=== PATIENT | female | born 1950 | race African-American/Black ===

== ENCOUNTER 2018-10-20 11:34 | Inpatient (IN) | payer MEDICARE ==
[~2018-10-20] VITALS: Ht 167.6 cm; Wt 61.8 kg
[2018-10-20] MEDS ORDERED: INSLAN SQ (12:02)
[2018-10-20 12:04] LABS: GLUCOSE,POINT OF CARE 313 MG/DL (70-110)
[2018-10-20] MEDS ORDERED: PERTUSS(ACELL),DIPH,TET VAC/PF 0.5 ML VIAL IM ONE (13:15)
[2018-10-20] MEDS ORDERED: PIPERACILLIN/TAZO 3.375 GM/D5W 50 ML IV ONE (13:15)
[2018-10-20] MEDS ORDERED: VANCOMYCIN HCL 1 GM/D5% WATER 200 ML IV ONE ×2 (14:15→22:00)
[2018-10-20 14:20] LABS: BASOPHILS % (AUTO) 0.4 % (0.0-2.0); EOSINOPHILS % (AUTO) 0 % (1.0-6.0); HEMATOCRIT 33.9 % (36-46); HEMOGLOBIN 10.8 g/dL (12.0-16.0); LYMPHOCYTES # (AUTO) 1.5 K/uL (1.0-4.8); LYMPHOCYTES % (AUTO) 9.9 % (22.0-44.0); MEAN CORPUSCULAR HEMOGLOBIN 24.8 pg (26.0-34.0); MEAN CORPUSCULAR HGB CONC 31.8 G/dL (31.0-37.0); MEAN CORPUSCULAR VOLUME 78 fL (80-100); MONOCYTES # (AUTO) 1.3 K/uL (0.1-1.0); MONOCYTES % (AUTO) 8.7 % (2.0-9.0); NEUTROPHILS # (AUTO) 12.2 K/uL (1.8-7.7); PLATELET COUNT (AUTO) 386 K/uL (150-450); RED BLOOD CELL COUNT(AUTO) 4.34 MIL/uL (4.00-5.20); RED CELL DISTRIBUTION WIDTH 13.5 % (11.5-14.5)
[2018-10-20 15:14] LABS: ANION GAP 12 mmol/L (8-16); CALCIUM, TOTAL 9.2 mg/dL (8.8-10.5); CARBON DIOXIDE 30 mmol/L (22-29); CHLORIDE 97 mmol/L (98-107); CREATININE 0.76 mg/dL (0.60-1.30); GLOMERULAR FILTR. RATE CALC > 60 mL/min (>60); GLUCOSE,RANDOM 265 mg/dL (70-110); POTASSIUM 3.3 mmol/L (3.5-5.1); SODIUM SERUM 139 mmol/L (136-145); UREA NITROGEN, BLOOD 9 mg/dL (7-18)
[2018-10-20] MEDS ORDERED: ONDANSETRON HCL 4 MG/2 ML VIAL IVP PRN ×2 (15:15→20:00)
[2018-10-20] MEDS ORDERED: ACETAMINOPHEN 325 MG TABLET PO PRN ×2 (15:15→20:00)
[2018-10-20] MEDS ORDERED: SODIUM CHLORIDE 0.9% 1,000 ML IV ONE (15:15)
[2018-10-20 15:20] LABS: ALANINE AMINOTRANSFERASE 27 U/L (12-78); ALBUMIN 2.4 g/dL (3.4-5.0); ALKALINE PHOSPHATASE 95 U/L (46-116); ASPARTATE AMINOTRANSFERASE 66 U/L (15-37); BILIRUBIN,TOTAL 0.8 mg/dL (0.1-1.0); TOTAL PROTEIN, SERUM 8.5 g/dL (6.4-8.2)
[2018-10-20 15:23] LABS: ERYTHROCYTE SEDIMENTATION RATE 118 MM/HR (0-20)
[2018-10-20] MEDS ORDERED: DEXTROSE 50%-WATER 25 GM/50 ML SYRINGE IVP PRN (15:30)
[2018-10-20] MEDS ORDERED: INSULIN LISPRO 100 UNITS/ML SQ PRN ×2 (15:30→20:00)
[2018-10-20 17:09] LABS: GLUCOSE,POINT OF CARE 290 MG/DL (70-110)
[2018-10-20 19:21] VITALS: BP 109/75
[2018-10-20] MEDS ORDERED: 0.9% SODIUM CHLORIDE 10 ML SYRINGE IVP PRN (20:00)
[2018-10-20] MEDS ORDERED: GLUCAGON,HUMAN RECOMBINANT 1 MG VIAL IM PRN (20:00)
[2018-10-20] MEDS: HEPARIN SODIUM,PORCINE 5,000 UNITS/ML VIAL SQ SCH ×3 (20:00→22:58)
[2018-10-20] MEDS ORDERED: ZOLPIDEM TARTRATE 5 MG TABLET PO PRN (20:00)
[2018-10-20] MEDS: INSULIN GLARGINE,HUM.REC.ANLOG 100 UNITS/ML SQ SCH (20:02)
[2018-10-20] MEDS: PANTOPRAZOLE SODIUM 40 MG/VIAL IVP SCH (20:06)
[2018-10-20] MEDS: DOCUSATE SODIUM 100 MG CAPSULE PO SCH (20:07)
[2018-10-20] MEDS ORDERED: DEXTROSE 50%-WATER 25 GM/50 ML SYG IVP PRN (20:15)
[2018-10-20] MEDS ORDERED: POTASSIUM CHL 10 MEQ/WATER 50 ML IV PRN (21:00)
[2018-10-20] MEDS: PIPERACILLIN/TAZO 3.375 GM/D5W 50 ML IV SCH (21:08)
[2018-10-20 21:14] LABS: GLUCOMETER DEV NAME(LOC) 5S.2; GLUCOSE,POINT OF CARE 182 MG/DL (70-110)
[2018-10-20] MEDS: POTASSIUM CHLORIDE 20 MEQ ER TABLET PO PRN (23:39)
[2018-10-20 23:47] VITALS: BP 114/68
[2018-10-21] MEDS: PIPERACILLIN/TAZO 3.375 GM/D5W 50 ML IV SCH ×4 (03:02→20:04)
[2018-10-21 04:45] VITALS: BP 115/71
[2018-10-21 05:59] LABS: BASOPHILS % (AUTO) 0.3 % (0.0-2.0); EOSINOPHILS % (AUTO) 0 % (1.0-6.0); HEMATOCRIT 32.8 % (36-46); HEMOGLOBIN 10.8 g/dL (12.0-16.0); LYMPHOCYTES # (AUTO) 1.5 K/uL (1.0-4.8); LYMPHOCYTES % (AUTO) 10.4 % (22.0-44.0); MEAN CORPUSCULAR HEMOGLOBIN 25.3 pg (26.0-34.0); MEAN CORPUSCULAR HGB CONC 32.8 G/dL (31.0-37.0); MEAN CORPUSCULAR VOLUME 77 fL (80-100); MONOCYTES # (AUTO) 1.1 K/uL (0.1-1.0); MONOCYTES % (AUTO) 7.6 % (2.0-9.0); NEUTROPHILS # (AUTO) 11.4 K/uL (1.8-7.7); NEUTROPHILS % (AUTO) 81.7 % (40.0-70.0); PLATELET COUNT (AUTO) 345 K/uL (150-450); RED BLOOD CELL COUNT(AUTO) 4.25 MIL/uL (4.00-5.20)
[2018-10-21 06:14] LABS: GLUCOMETER DEV NAME(LOC) 5S.2; GLUCOSE,POINT OF CARE 147 MG/DL (70-110)
[2018-10-21 06:16] LABS: CALCIUM, TOTAL 8.8 mg/dL (8.8-10.5); CREATININE 1.28 mg/dL (0.60-1.30); POTASSIUM 3.5 mmol/L (3.5-5.1)
[2018-10-21] MEDS: VANCOMYCIN HCL 1 GM/D5% WATER 200 ML IV SCH ×2 (06:35→17:49)
[2018-10-21] MEDS: HEPARIN SODIUM,PORCINE 5,000 UNITS/ML VIAL SQ SCH ×2 (07:13→15:14)
[2018-10-21] MEDS: DOCUSATE SODIUM 100 MG CAPSULE PO SCH ×2 (07:13→20:13)
[2018-10-21 07:39] VITALS: BP 118/79
[2018-10-21 08:08] LABS: AMPHET/METH SCREEN,URINE NEGATIVE (NEGATIVE); BARBITURATE SCREEN, URINE NEGATIVE (NEGATIVE); BENZODIAZEPINES SCREEN,URINE NEGATIVE (NEGATIVE); CANNABINOID SCREEN,URINE NEGATIVE (NEGATIVE); COCAINE SCREEN,URINE NEGATIVE (NEGATIVE); METHADONE SCREEN, URINE NEGATIVE (NEGATIVE); OPIATE SCREEN,URINE NEGATIVE (NEGATIVE)
[2018-10-21 08:09] LABS: PHENCYCLIDINE SCREEN,URINE NEGATIVE (NEGATIVE)
[2018-10-21] MEDS: PANTOPRAZOLE SODIUM 40 MG/VIAL IVP SCH (08:18)
[2018-10-21] MEDS ORDERED: RINGERS SOLUTION,LACTATED 1,000 ML IV ONE ×2 (08:20→08:45)
[2018-10-21] MEDS ORDERED: LIDOCAINE/PF 1% 30 ML VIAL ONE (08:35)
[2018-10-21] MEDS ORDERED: BUPIVACAINE HCL/PF 0.5% 30 ML VIAL ONE (08:35)
[2018-10-21] MEDS ORDERED: BACITRACIN 50,000 UNITS/VIAL ONE ×2 (08:36→09:12)
[2018-10-21] MEDS ORDERED: SODIUM CL IRRIG SOLN BAG 3,000 ML IRRIG ONE ×2 (08:36→09:12)
[2018-10-21] MEDS ORDERED: MEPERIDINE-PF 25 MG/ML VIAL IVP PRN (08:45)
[2018-10-21] MEDS ORDERED: FentaNYL CITRATE-PF 100 MCG/2 ML VIAL IVP PRN (08:45)
[2018-10-21] MEDS ORDERED: HYDROmorphone 2 MG/ML SYRINGE IVP PRN (08:45)
[2018-10-21 10:37] VITALS: BP 111/68
[2018-10-21 11:04] LABS: GLUCOMETER DEV NAME(LOC) 5N.2; GLUCOSE,POINT OF CARE 179 MG/DL (70-110)
[2018-10-21] MEDS: INSULIN LISPRO 100 UNITS/ML SQ PRN ×3 (11:53→20:13)
[2018-10-21] MEDS ORDERED: LIDOCAINE/PF 2% 5 ML VIAL INJ ONE (12:00)
[2018-10-21] MEDS ORDERED: PHENYLEPHRINE HCL 10 MG/ML VIAL IVP ONE (12:00)
[2018-10-21] MEDS ORDERED: FentaNYL CITRATE-PF 100 MCG/2 ML VIAL IVP ONE (12:00)
[2018-10-21] MEDS ORDERED: MIDAZOLAM HCL 2 MG/2 ML VIAL IVP ONE (12:00)
[2018-10-21] MEDS ORDERED: ONDANSETRON HCL 4 MG/2 ML VIAL IVP ONE (12:00)
[2018-10-21 15:22] VITALS: BP 99/69
[2018-10-21] MEDS: MORPHINE SULFATE 2 MG/ML SYRINGE IVP PRN ×2 (17:19→23:53)
[2018-10-21 18:04] LABS: GLUCOMETER DEV NAME(LOC) 5N.2; GLUCOSE,POINT OF CARE 174 MG/DL (70-110)
[2018-10-21] MEDS: INSULIN GLARGINE,HUM.REC.ANLOG 100 UNITS/ML SQ SCH (20:13)
[2018-10-21 20:16] VITALS: BP 115/63
[2018-10-21 20:54] LABS: GLUCOMETER DEV NAME(LOC) 5S.2; GLUCOSE,POINT OF CARE 343 MG/DL (70-110)
[2018-10-21 23:44] VITALS: BP 106/66
[2018-10-22] MEDS: PIPERACILLIN/TAZO 3.375 GM/D5W 50 ML IV SCH ×4 (03:07→20:38)
[2018-10-22 05:50] VITALS: BP 115/70
[2018-10-22] MEDS: VANCOMYCIN HCL 1 GM/D5% WATER 200 ML IV SCH ×2 (05:51→17:33)
[2018-10-22] MEDS: INSULIN LISPRO 100 UNITS/ML SQ PRN ×4 (05:53→20:50)
[2018-10-22 06:07] LABS: BASOPHILS % (AUTO) 0.3 % (0.0-2.0); EOSINOPHILS % (AUTO) 0.1 % (1.0-6.0); HEMATOCRIT 28.7 % (36-46); HEMOGLOBIN 9.4 g/dL (12.0-16.0); LYMPHOCYTES # (AUTO) 1.4 K/uL (1.0-4.8); LYMPHOCYTES % (AUTO) 11.6 % (22.0-44.0); MEAN CORPUSCULAR HGB CONC 32.9 G/dL (31.0-37.0); MEAN CORPUSCULAR VOLUME 76 fL (80-100); MONOCYTES % (AUTO) 8.9 % (2.0-9.0); NEUTROPHILS # (AUTO) 9.3 K/uL (1.8-7.7); NEUTROPHILS % (AUTO) 79.1 % (40.0-70.0); PLATELET COUNT (AUTO) 328 K/uL (150-450); RED BLOOD CELL COUNT(AUTO) 3.77 MIL/uL (4.00-5.20); RED CELL DISTRIBUTION WIDTH 13.8 % (11.5-14.5)
[2018-10-22 06:30] LABS: CALCIUM, TOTAL 8.2 mg/dL (8.8-10.5); CREATININE 1.17 mg/dL (0.60-1.30); MAGNESIUM 2.1 mg/dL (1.80-2.40); POTASSIUM 3.6 mmol/L (3.5-5.1); VANCOMYCIN,RANDOM 14.5 mcg/mL (25.0-50.0)
[2018-10-22 06:30] LABS: GLUCOMETER DEV NAME(LOC) 5S.2; GLUCOSE,POINT OF CARE 220 MG/DL (70-110)
[2018-10-22 07:52] VITALS: BP 110/50
[2018-10-22] MEDS: OXYGEN THERAPY IH SCH (08:00)
[2018-10-22] MEDS: HEPARIN SODIUM,PORCINE 5,000 UNITS/ML VIAL SQ SCH ×3 (08:51→16:00)
[2018-10-22] MEDS: DOCUSATE SODIUM 100 MG CAPSULE PO SCH ×2 (08:51→20:38)
[2018-10-22] MEDS: PANTOPRAZOLE SODIUM 40 MG/VIAL IVP SCH (08:52)
[2018-10-22 11:23] VITALS: BP 116/76
[2018-10-22 12:04] LABS: GLUCOMETER DEV NAME(LOC) 5N.2; GLUCOSE,POINT OF CARE 252 MG/DL (70-110)
[2018-10-22] MEDS: MORPHINE SULFATE 2 MG/ML SYRINGE IVP PRN ×2 (14:42→20:38)
[2018-10-22 15:36] VITALS: BP 107/71
[2018-10-22 18:54] LABS: GLUCOMETER DEV NAME(LOC) 5S.2; GLUCOSE,POINT OF CARE 183 MG/DL (70-110)
[2018-10-22 20:02] VITALS: BP 112/70
[2018-10-22] MEDS: INSULIN GLARGINE,HUM.REC.ANLOG 100 UNITS/ML SQ SCH (20:51)
[2018-10-22 23:55] VITALS: BP 109/72
[2018-10-23 00:05] LABS: GLUCOMETER DEV NAME(LOC) 5S.2; GLUCOSE,POINT OF CARE 291 MG/DL (70-110)
[2018-10-23] MEDS: PIPERACILLIN/TAZO 3.375 GM/D5W 50 ML IV SCH ×4 (03:14→20:42)
[2018-10-23 03:18] VITALS: BP 113/76
[2018-10-23] MEDS: VANCOMYCIN HCL 1 GM/D5% WATER 200 ML IV SCH (05:58)
[2018-10-23 06:14] LABS: GLUCOMETER DEV NAME(LOC) 5S.2; GLUCOSE,POINT OF CARE 120 MG/DL (70-110)
[2018-10-23 06:34] LABS: CALCIUM, TOTAL 8.2 mg/dL (8.8-10.5); CREATININE 1.2 mg/dL (0.60-1.30); POTASSIUM 3.1 mmol/L (3.5-5.1)
[2018-10-23 08:09] VITALS: BP 119/74
[2018-10-23] MEDS: HEPARIN SODIUM,PORCINE 5,000 UNITS/ML VIAL SQ SCH ×4 (08:52→23:19)
[2018-10-23] MEDS: DOCUSATE SODIUM 100 MG CAPSULE PO SCH ×2 (08:53→20:43)
[2018-10-23] MEDS: PANTOPRAZOLE SODIUM 40 MG/VIAL IVP SCH (08:53)
[2018-10-23 11:47] VITALS: BP 122/73
[2018-10-23] MEDS: INSULIN LISPRO 100 UNITS/ML SQ PRN ×3 (12:03→20:42)
[2018-10-23 16:10] VITALS: BP 120/56
[2018-10-23 20:05] VITALS: BP 115/70
[2018-10-23 20:30] LABS: GLUCOMETER DEV NAME(LOC) 5S.2; GLUCOSE,POINT OF CARE 187 MG/DL (70-110)
[2018-10-23 20:30] LABS: GLUCOMETER DEV NAME(LOC) 5S.2; GLUCOSE,POINT OF CARE 219 MG/DL (70-110)
[2018-10-23] MEDS: POTASSIUM CHLORIDE 20 MEQ ER TABLET PO PRN (20:42)
[2018-10-23] MEDS: INSULIN GLARGINE,HUM.REC.ANLOG 100 UNITS/ML SQ SCH (20:43)
[2018-10-23 22:44] LABS: GLUCOMETER DEV NAME(LOC) 5S.2; GLUCOSE,POINT OF CARE 291 MG/DL (70-110)
[2018-10-24] VITALS (7 sets, daily range): BP systolic 100–122; BP diastolic 58–77
[2018-10-24] MEDS: PIPERACILLIN/TAZO 3.375 GM/D5W 50 ML IV SCH ×4 (03:39→20:49)
[2018-10-24 05:58] LABS: BASOPHILS % (AUTO) 0.4 % (0.0-2.0); EOSINOPHILS % (AUTO) 0.5 % (1.0-6.0); HEMATOCRIT 29.1 % (36-46); HEMOGLOBIN 9.4 g/dL (12.0-16.0); LYMPHOCYTES # (AUTO) 1.6 K/uL (1.0-4.8); LYMPHOCYTES % (AUTO) 14.1 % (22.0-44.0); MEAN CORPUSCULAR HEMOGLOBIN 24.5 pg (26.0-34.0); MEAN CORPUSCULAR HGB CONC 32.3 G/dL (31.0-37.0); MEAN CORPUSCULAR VOLUME 76 fL (80-100); MONOCYTES % (AUTO) 8.8 % (2.0-9.0); NEUTROPHILS # (AUTO) 8.6 K/uL (1.8-7.7); NEUTROPHILS % (AUTO) 76.2 % (40.0-70.0); PLATELET COUNT (AUTO) 356 K/uL (150-450); RED BLOOD CELL COUNT(AUTO) 3.85 MIL/uL (4.00-5.20); RED CELL DISTRIBUTION WIDTH 13.6 % (11.5-14.5)
[2018-10-24 06:28] LABS: CALCIUM, TOTAL 8.6 mg/dL (8.8-10.5); CREATININE 1.12 mg/dL (0.60-1.30); MAGNESIUM 2.1 mg/dL (1.80-2.40); POTASSIUM 3.6 mmol/L (3.5-5.1)
[2018-10-24 06:29] LABS: GLUCOMETER DEV NAME(LOC) 5S.2; GLUCOSE,POINT OF CARE 135 MG/DL (70-110)
[2018-10-24] MEDS: HEPARIN SODIUM,PORCINE 5,000 UNITS/ML VIAL SQ SCH ×2 (07:54→15:27)
[2018-10-24] MEDS: PANTOPRAZOLE SODIUM 40 MG/VIAL IVP SCH (07:54)
[2018-10-24] MEDS: DOCUSATE SODIUM 100 MG CAPSULE PO SCH ×2 (07:54→21:00)
[2018-10-24 11:39] LABS: GLUCOMETER DEV NAME(LOC) 5S.2; GLUCOSE,POINT OF CARE 292 MG/DL (70-110)
[2018-10-24] MEDS: INSULIN LISPRO 100 UNITS/ML SQ PRN ×3 (11:39→20:50)
[2018-10-24 17:19] LABS: GLUCOMETER DEV NAME(LOC) 5S.2; GLUCOSE,POINT OF CARE 273 MG/DL (70-110)
[2018-10-24] MEDS: INSULIN GLARGINE,HUM.REC.ANLOG 100 UNITS/ML SQ SCH (20:49)
[2018-10-25] MEDS: HEPARIN SODIUM,PORCINE 5,000 UNITS/ML VIAL SQ SCH ×4 (00:01→23:50)
[2018-10-25] MEDS: PIPERACILLIN/TAZO 3.375 GM/D5W 50 ML IV SCH ×4 (04:08→20:35)
[2018-10-25 04:33] VITALS: BP 105/64
[2018-10-25] MEDS: INSULIN LISPRO 100 UNITS/ML SQ PRN ×4 (06:31→20:44)
[2018-10-25 06:41] LABS: CALCIUM, TOTAL 8.3 mg/dL (8.8-10.5); CREATININE 1.12 mg/dL (0.60-1.30); POTASSIUM 3.3 mmol/L (3.5-5.1)
[2018-10-25 06:58] LABS: GLUCOMETER DEV NAME(LOC) 5N.2; GLUCOSE,POINT OF CARE 145 MG/DL (70-110)
[2018-10-25 06:58] LABS: GLUCOMETER DEV NAME(LOC) 5N.2; GLUCOSE,POINT OF CARE 313 MG/DL (70-110)
[2018-10-25 07:57] VITALS: BP 121/79
[2018-10-25] MEDS: DOCUSATE SODIUM 100 MG CAPSULE PO SCH ×2 (08:26→20:35)
[2018-10-25] MEDS: PANTOPRAZOLE SODIUM 40 MG/VIAL IVP SCH (08:26)
[2018-10-25 12:12] VITALS: BP 127/81
[2018-10-25 15:50] VITALS: BP 129/78
[2018-10-25] MEDS: POTASSIUM CHLORIDE 20 MEQ ER TABLET PO PRN (17:12)
[2018-10-25 19:06] LABS: GLUCOMETER DEV NAME(LOC) 5S.2; GLUCOSE,POINT OF CARE 271 MG/DL (70-110)
[2018-10-25 19:06] LABS: GLUCOMETER DEV NAME(LOC) 5S.2; GLUCOSE,POINT OF CARE 190 MG/DL (70-110)
[2018-10-25] MEDS: INSULIN GLARGINE,HUM.REC.ANLOG 100 UNITS/ML SQ SCH (20:41)
[2018-10-25 22:58] VITALS: BP 127/76
[2018-10-26] VITALS (7 sets, daily range): BP systolic 111–143; BP diastolic 57–83
[2018-10-26 01:05] LABS: GLUCOMETER DEV NAME(LOC) 5N.2; GLUCOSE,POINT OF CARE 215 MG/DL (70-110)
[2018-10-26] MEDS: PIPERACILLIN/TAZO 3.375 GM/D5W 50 ML IV SCH ×4 (03:30→22:04)
[2018-10-26] MEDS ORDERED: RINGERS SOLUTION,LACTATED 1,000 ML IV SCH (06:00)
[2018-10-26 06:04] LABS: BASOPHILS % (AUTO) 0.5 % (0.0-2.0); EOSINOPHILS % (AUTO) 1.2 % (1.0-6.0); HEMATOCRIT 27.1 % (36-46); HEMOGLOBIN 8.7 g/dL (12.0-16.0); LYMPHOCYTES # (AUTO) 1.4 K/uL (1.0-4.8); LYMPHOCYTES % (AUTO) 14.3 % (22.0-44.0); MEAN CORPUSCULAR HEMOGLOBIN 24.7 pg (26.0-34.0); MEAN CORPUSCULAR HGB CONC 32.3 G/dL (31.0-37.0); MEAN CORPUSCULAR VOLUME 77 fL (80-100); MONOCYTES # (AUTO) 1.1 K/uL (0.1-1.0); MONOCYTES % (AUTO) 11.7 % (2.0-9.0); NEUTROPHILS # (AUTO) 6.9 K/uL (1.8-7.7); NEUTROPHILS % (AUTO) 72.3 % (40.0-70.0); PLATELET COUNT (AUTO) 390 K/uL (150-450); RED BLOOD CELL COUNT(AUTO) 3.54 MIL/uL (4.00-5.20); RED CELL DISTRIBUTION WIDTH 13.9 % (11.5-14.5)
[2018-10-26 06:33] LABS: ALANINE AMINOTRANSFERASE 22 U/L (12-78); ALBUMIN 1.7 g/dL (3.4-5.0); ALKALINE PHOSPHATASE 93 U/L (46-116); ANION GAP 8 mmol/L (8-16); ASPARTATE AMINOTRANSFERASE 33 U/L (15-37); BILIRUBIN,TOTAL 0.4 mg/dL (0.1-1.0); CALCIUM, TOTAL 8.4 mg/dL (8.8-10.5); CARBON DIOXIDE 30 mmol/L (22-29); CHLORIDE 101 mmol/L (98-107); CREATININE 1.08 mg/dL (0.60-1.30); GLOMERULAR FILTR. RATE CALC > 60 mL/min (>60); GLUCOSE,RANDOM 86 mg/dL (70-110); POTASSIUM 3.6 mmol/L (3.5-5.1); SODIUM SERUM 139 mmol/L (136-145); TOTAL PROTEIN, SERUM 7.1 g/dL (6.4-8.2); UREA NITROGEN, BLOOD 9 mg/dL (7-18)
[2018-10-26] MEDS ORDERED: ACETAMINOPHEN 1000 MG/ISO-OSM 100 ML IV ONE (06:53)
[2018-10-26] MEDS ORDERED: SODIUM CL IRRIG SOLN BAG 6,000 ML IRRIG ONE (06:56)
[2018-10-26] MEDS ORDERED: LIDOCAINE/PF 2% 5 ML VIAL ONE (06:59)
[2018-10-26] MEDS ORDERED: BUPIVACAINE HCL/PF 0.5% 30 ML VIAL ONE (06:59)
[2018-10-26] MEDS: HEPARIN SODIUM,PORCINE 5,000 UNITS/ML VIAL SQ SCH ×2 (08:00→17:05)
[2018-10-26] MEDS ORDERED: HYDROmorphone 2 MG/ML SYRINGE IVP PRN (08:00)
[2018-10-26] MEDS ORDERED: MEPERIDINE-PF 25 MG/ML VIAL IVP PRN (08:00)
[2018-10-26] MEDS: OXYGEN THERAPY IH SCH ×2 (08:00→20:00)
[2018-10-26] MEDS ORDERED: FentaNYL CITRATE-PF 100 MCG/2 ML VIAL IVP PRN (08:00)
[2018-10-26] MEDS: PANTOPRAZOLE SODIUM 40 MG/VIAL IVP SCH (09:00)
[2018-10-26] MEDS: DOCUSATE SODIUM 100 MG CAPSULE PO SCH ×2 (09:00→20:42)
[2018-10-26] MEDS: MULTIVITAMINS WITH MINERALS, THERAPEUTIC TABLET PO SCH (09:00)
[2018-10-26 12:09] LABS: GLUCOMETER DEV NAME(LOC) 5N.2; GLUCOSE,POINT OF CARE 83 MG/DL (70-110)
[2018-10-26] MEDS: INSULIN LISPRO 100 UNITS/ML SQ PRN ×2 (12:17→17:20)
[2018-10-26 12:49] LABS: GLUCOMETER DEV NAME(LOC) 6N.2; GLUCOSE,POINT OF CARE 170 MG/DL (70-110)
[2018-10-26] MEDS: INSULIN GLARGINE,HUM.REC.ANLOG 100 UNITS/ML SQ SCH (20:42)
[2018-10-26 23:04] LABS: GLUCOMETER DEV NAME(LOC) 4E.; GLUCOSE,POINT OF CARE 144 MG/DL (70-110)
[2018-10-27 00:24] LABS: GLUCOMETER DEV NAME(LOC) 6N.2; GLUCOSE,POINT OF CARE 133 MG/DL (70-110)
[2018-10-27] MEDS: HEPARIN SODIUM,PORCINE 5,000 UNITS/ML VIAL SQ SCH ×3 (00:44→16:14)
[2018-10-27] MEDS: PIPERACILLIN/TAZO 3.375 GM/D5W 50 ML IV SCH ×4 (03:20→21:29)
[2018-10-27] MEDS ORDERED: PROPOFOL 1% 20 ML VIAL IVP ONE (05:05)
[2018-10-27] MEDS ORDERED: LIDOCAINE/PF 2% 5 ML VIAL IM ONE (05:05)
[2018-10-27] MEDS ORDERED: MIDAZOLAM HCL 2 MG/2 ML VIAL IVP ONE (05:05)
[2018-10-27] MEDS ORDERED: KETAMINE HCL 50 MG/ML 10 ML VIAL IVP ONE (05:05)
[2018-10-27 05:54] VITALS: BP 125/80
[2018-10-27] MEDS: OXYGEN THERAPY IH SCH ×2 (08:00→20:00)
[2018-10-27] MEDS: DOCUSATE SODIUM 100 MG CAPSULE PO SCH ×3 (08:29→20:45)
[2018-10-27] MEDS: MULTIVITAMINS WITH MINERALS, THERAPEUTIC TABLET PO SCH (08:29)
[2018-10-27] MEDS: PANTOPRAZOLE SODIUM 40 MG/VIAL IVP SCH (08:29)
[2018-10-27 08:31] VITALS: BP 130/77
[2018-10-27] MEDS: INSULIN LISPRO 100 UNITS/ML SQ PRN ×3 (11:56→20:43)
[2018-10-27 12:56] VITALS: BP 127/80
[2018-10-27 16:10] VITALS: BP 141/85
[2018-10-27 20:19] VITALS: BP 114/65
[2018-10-27] MEDS: INSULIN GLARGINE,HUM.REC.ANLOG 100 UNITS/ML SQ SCH (20:43)
[2018-10-27] MEDS: LEVOFLOXACIN 250 MG TABLET PO SCH (23:18)
[2018-10-27 23:28] VITALS: BP 114/77
[2018-10-28] MEDS: HEPARIN SODIUM,PORCINE 5,000 UNITS/ML VIAL SQ SCH ×4 (00:19→23:57)
[2018-10-28 04:30] VITALS: BP 113/67
[2018-10-28 07:10] LABS: BASOPHILS % (AUTO) 0.4 % (0.0-2.0); EOSINOPHILS % (AUTO) 1.2 % (1.0-6.0); HEMATOCRIT 26.9 % (36-46); HEMOGLOBIN 8.8 g/dL (12.0-16.0); LYMPHOCYTES # (AUTO) 1.4 K/uL (1.0-4.8); LYMPHOCYTES % (AUTO) 13.9 % (22.0-44.0); MEAN CORPUSCULAR HEMOGLOBIN 24.7 pg (26.0-34.0); MEAN CORPUSCULAR HGB CONC 32.8 G/dL (31.0-37.0); MEAN CORPUSCULAR VOLUME 75 fL (80-100); MONOCYTES # (AUTO) 1.2 K/uL (0.1-1.0); MONOCYTES % (AUTO) 11.6 % (2.0-9.0); NEUTROPHILS # (AUTO) 7.3 K/uL (1.8-7.7); NEUTROPHILS % (AUTO) 72.9 % (40.0-70.0); PLATELET COUNT (AUTO) 415 K/uL (150-450); RED BLOOD CELL COUNT(AUTO) 3.56 MIL/uL (4.00-5.20)
[2018-10-28 07:44] LABS: ALBUMIN 1.8 g/dL (3.4-5.0); BILIRUBIN,TOTAL 0.4 mg/dL (0.1-1.0); CALCIUM, TOTAL 8.7 mg/dL (8.8-10.5); CREATININE 1.24 mg/dL (0.60-1.30); POTASSIUM 3.8 mmol/L (3.5-5.1); TOTAL PROTEIN, SERUM 7.8 g/dL (6.4-8.2)
[2018-10-28] MEDS: OXYGEN THERAPY IH SCH ×2 (07:46→21:16)
[2018-10-28 08:01] VITALS: BP 128/77
[2018-10-28] MEDS: MULTIVITAMINS WITH MINERALS, THERAPEUTIC TABLET PO SCH (08:16)
[2018-10-28] MEDS: DOCUSATE SODIUM 100 MG CAPSULE PO SCH ×2 (08:16→21:16)
[2018-10-28] MEDS: PANTOPRAZOLE SODIUM 40 MG/VIAL IVP SCH (08:16)
[2018-10-28] MEDS: INSULIN LISPRO 100 UNITS/ML SQ PRN ×3 (11:36→21:21)
[2018-10-28 12:15] VITALS: BP 128/71
[2018-10-28 15:52] VITALS: BP 146/90
[2018-10-28 19:06] VITALS: BP 111/70
[2018-10-28] MEDS: LEVOFLOXACIN 250 MG TABLET PO SCH (21:16)
[2018-10-28] MEDS: INSULIN GLARGINE,HUM.REC.ANLOG 100 UNITS/ML SQ SCH (21:19)
[2018-10-28 23:25] VITALS: BP 111/63
[2018-10-29 04:30] VITALS: BP 125/76
[2018-10-29] MEDS: OXYGEN THERAPY IH SCH ×2 (08:00→21:01)
[2018-10-29 08:06] VITALS: BP 135/85
[2018-10-29] MEDS: HEPARIN SODIUM,PORCINE 5,000 UNITS/ML VIAL SQ SCH ×3 (08:49→23:35)
[2018-10-29] MEDS: MULTIVITAMINS WITH MINERALS, THERAPEUTIC TABLET PO SCH (08:49)
[2018-10-29] MEDS: PANTOPRAZOLE SODIUM 40 MG/VIAL IVP SCH (08:50)
[2018-10-29] MEDS: DOCUSATE SODIUM 100 MG CAPSULE PO SCH ×2 (08:50→20:50)
[2018-10-29 11:24] VITALS: BP 114/71
[2018-10-29] MEDS: INSULIN LISPRO 100 UNITS/ML SQ PRN ×3 (11:54→20:56)
[2018-10-29] MEDS: MORPHINE SULFATE 2 MG/ML SYRINGE IVP PRN (14:10)
[2018-10-29 15:40] VITALS: BP 135/82
[2018-10-29 19:49] LABS: GLUCOMETER DEV NAME(LOC) 6N.2; GLUCOSE,POINT OF CARE 250 MG/DL (70-110)
[2018-10-29 19:49] LABS: GLUCOMETER DEV NAME(LOC) 6N.2; GLUCOSE,POINT OF CARE 179 MG/DL (70-110)
[2018-10-29 19:49] LABS: GLUCOMETER DEV NAME(LOC) 6N.2; GLUCOSE,POINT OF CARE 243 MG/DL (70-110)
[2018-10-29 19:49] LABS: GLUCOMETER DEV NAME(LOC) 6N.2; GLUCOSE,POINT OF CARE 91 MG/DL (70-110)
[2018-10-29 19:49] LABS: GLUCOMETER DEV NAME(LOC) 6N.2; GLUCOSE,POINT OF CARE 72 MG/DL (70-110)
[2018-10-29 19:49] LABS: GLUCOMETER DEV NAME(LOC) 6N.2; GLUCOSE,POINT OF CARE 176 MG/DL (70-110)
[2018-10-29 20:20] LABS: GLUCOMETER DEV NAME(LOC) 4E.; GLUCOSE,POINT OF CARE 139 MG/DL (70-110)
[2018-10-29 20:20] LABS: GLUCOMETER DEV NAME(LOC) 4E.; GLUCOSE,POINT OF CARE 163 MG/DL (70-110)
[2018-10-29 20:20] LABS: GLUCOMETER DEV NAME(LOC) 4E.; GLUCOSE,POINT OF CARE 209 MG/DL (70-110)
[2018-10-29 20:20] LABS: GLUCOMETER DEV NAME(LOC) 4E.; GLUCOSE,POINT OF CARE 214 MG/DL (70-110)
[2018-10-29 20:20] LABS: GLUCOMETER DEV NAME(LOC) 4E.; GLUCOSE,POINT OF CARE 116 MG/DL (70-110)
[2018-10-29] MEDS: LEVOFLOXACIN 250 MG TABLET PO SCH (20:50)
[2018-10-29] MEDS: INSULIN GLARGINE,HUM.REC.ANLOG 100 UNITS/ML SQ SCH (20:55)
[2018-10-30] VITALS (7 sets, daily range): BP systolic 117–162; BP diastolic 71–99
[2018-10-30 01:44] LABS: GLUCOMETER DEV NAME(LOC) 6N.2; GLUCOSE,POINT OF CARE 338 MG/DL (70-110)
[2018-10-30 07:44] LABS: GLUCOMETER DEV NAME(LOC) 6N.2; GLUCOSE,POINT OF CARE 114 MG/DL (70-110)
[2018-10-30] MEDS: OXYGEN THERAPY IH SCH (08:00)
[2018-10-30] MEDS: DOCUSATE SODIUM 100 MG CAPSULE PO SCH ×2 (09:00→20:16)
[2018-10-30] MEDS: PANTOPRAZOLE SODIUM 40 MG/VIAL IVP SCH (09:11)
[2018-10-30] MEDS: HEPARIN SODIUM,PORCINE 5,000 UNITS/ML VIAL SQ SCH ×3 (09:11→23:46)
[2018-10-30] MEDS: MULTIVITAMINS WITH MINERALS, THERAPEUTIC TABLET PO SCH (09:12)
[2018-10-30] MEDS: INSULIN LISPRO 100 UNITS/ML SQ PRN ×3 (11:47→20:26)
[2018-10-30 12:49] LABS: GLUCOMETER DEV NAME(LOC) 6N.2; GLUCOSE,POINT OF CARE 246 MG/DL (70-110)
[2018-10-30] MEDS: LEVOFLOXACIN 250 MG TABLET PO SCH (20:16)
[2018-10-30] MEDS: INSULIN GLARGINE,HUM.REC.ANLOG 100 UNITS/ML SQ SCH (20:27)
[2018-10-30 20:47] LABS: GLUCOMETER DEV NAME(LOC) 4E.; GLUCOSE,POINT OF CARE 151 MG/DL (70-110)
[2018-10-31 04:45] VITALS: BP 137/87
[2018-10-31 05:19] LABS: GLUCOMETER DEV NAME(LOC) 6N.2; GLUCOSE,POINT OF CARE 225 MG/DL (70-110)
[2018-10-31 07:24] VITALS: BP 128/84
[2018-10-31 08:47] VITALS: BP 132/76
[2018-10-31] MEDS: DOCUSATE SODIUM 100 MG CAPSULE PO SCH (09:01)
[2018-10-31] MEDS: PANTOPRAZOLE SODIUM 40 MG/VIAL IVP SCH (09:01)
[2018-10-31] MEDS: HEPARIN SODIUM,PORCINE 5,000 UNITS/ML VIAL SQ SCH (09:01)
[2018-10-31] MEDS: MULTIVITAMINS WITH MINERALS, THERAPEUTIC TABLET PO SCH (09:01)
[2018-10-31 09:19] LABS: GLUCOMETER DEV NAME(LOC) 4E.; GLUCOSE,POINT OF CARE 105 MG/DL (70-110)
[2018-10-31] MEDS ORDERED: LEVO500 PO (11:16)
[2018-10-31 11:29] VITALS: BP 135/98
[2018-10-31] MEDS: INSULIN LISPRO 100 UNITS/ML SQ PRN (11:45)
[2018-10-31 12:59] LABS: GLUCOMETER DEV NAME(LOC) 4E.; GLUCOSE,POINT OF CARE 156 MG/DL (70-110)
== END 2018-10-31 13:00 | disposition home health service (06) | DRG 854 ==
LOC: EMS 11:37 → 5N 17:45 → 4E 10-26 06:49
PROVIDERS: ADMIT Internal Medicine; ATTEND Internal Medicine
PROC: 0Y6Y0Z0 Detachment at Left 5th Toe, Complete, Open Approach (ICD-10-PCS; 2018-10-21)
PROC: 0Y6Q0Z3 Detachment at Left 1st Toe, Low, Open Approach (ICD-10-PCS; 2018-10-21)
PROC: 0Y9N0ZZ Drainage of Left Foot, Open Approach (ICD-10-PCS; principal; 2018-10-21 09:00)
PROC: 0QBP0ZX Excision of Left Metatarsal, Open Approach, Diagnostic (ICD-10-PCS; 2018-10-26)
PROC: 0QBP0ZX Excision of Left Metatarsal, Open Approach, Diagnostic (ICD-10-PCS; 2018-10-26)
DX: A41.9 Sepsis, unspecified organism (principal); M86.9 Osteomyelitis, unspecified; L02.612 Cutaneous abscess of left foot; L03.116 Cellulitis of left lower limb; E44.0 Moderate protein-calorie malnutrition; M60.9 Myositis, unspecified; E11.69 Type 2 diabetes mellitus with other specified complication; E11.51 Type 2 diabetes mellitus with diabetic peripheral angiopathy without gangrene; E11.621 Type 2 diabetes mellitus with foot ulcer; E11.65 Type 2 diabetes mellitus with hyperglycemia; F17.200 Nicotine dependence, unspecified, uncomplicated; L97.529 Non-pressure chronic ulcer of other part of left foot with unspecified severity; Z79.4 Long term (current) use of insulin; Z90.12 Acquired absence of left breast and nipple; Z91.14 Patient's other noncompliance with medication regimen
CPT/HCPCS: 80307; 83036; 83735; 84132; 85651; 87040; 87070; 87081; 87205; 88305; 88307; 88311; 90471; 90715; 93925; 96365; 96367; C9113; G0378; J0131; J1644; J1815; J2250; J2270; J2370; J2405; J2543; J2704; J3010; J3370; J3490; J7030; J7120

== ENCOUNTER 2019-02-10 13:10 | Emergency (ER) | payer MEDICARE ==
[~2019-02-10] VITALS: Ht 175.3 cm; Wt 77.3 kg
[~2019-02-10 13:10] MED LIST: INSLAN SQ
[2019-02-10 15:40] LABS: GLUCOSE,POINT OF CARE 151 MG/DL (70-110)
[2019-02-10 16:02] LABS: BASOPHILS % (AUTO) 0.7 % (0.0-2.0); EOSINOPHILS % (AUTO) 0.5 % (1.0-6.0); LYMPHOCYTES # (AUTO) 0.8 K/uL (1.0-4.8); LYMPHOCYTES % (AUTO) 8.2 % (22.0-44.0); MEAN CORPUSCULAR HEMOGLOBIN 25.3 pg (26.0-34.0); MEAN CORPUSCULAR HGB CONC 32.5 G/dL (31.0-37.0); MEAN CORPUSCULAR VOLUME 78 fL (80-100); MONOCYTES # (AUTO) 0.5 K/uL (0.1-1.0); MONOCYTES % (AUTO) 5.6 % (2.0-9.0); NEUTROPHILS # (AUTO) 8.2 K/uL (1.8-7.7); PLATELET COUNT (AUTO) 250 K/uL (150-450); RED BLOOD CELL COUNT(AUTO) 4.75 MIL/uL (4.00-5.20); RED CELL DISTRIBUTION WIDTH 21.1 % (11.5-14.5)
[2019-02-10 16:16] LABS: ANION GAP 6 mmol/L (8-16); CALCIUM, TOTAL 9.4 mg/dL (8.8-10.5); CARBON DIOXIDE 28 mmol/L (22-29); CHLORIDE 101 mmol/L (98-107); CREATININE 0.91 mg/dL (0.60-1.30); GLOMERULAR FILTR. RATE CALC > 60 mL/min (>60); GLUCOSE,RANDOM 142 mg/dL (70-110); POTASSIUM 4.5 mmol/L (3.5-5.1); SODIUM SERUM 135 mmol/L (136-145); UREA NITROGEN, BLOOD 23 mg/dL (7-18)
[2019-02-10 16:24] LABS: ALANINE AMINOTRANSFERASE 32 U/L (12-78); ALBUMIN 3.2 g/dL (3.4-5.0); ALKALINE PHOSPHATASE 78 U/L (46-116); ASPARTATE AMINOTRANSFERASE 31 U/L (15-37); BILIRUBIN,TOTAL 0.3 mg/dL (0.1-1.0); LIPASE 113 U/L (73-393)
[2019-02-10 16:54] LABS: B-TYPE NATRIURETIC PEPTIDE 242 pg/mL (0-100)
[2019-02-10 16:54] LABS: APPEARANCE,URINE CLEAR (CLEAR); BILIRUBIN,URINE NEGATIVE (NEGATIVE); GLUCOSE, URINE (UA) NEGATIVE (NEGATIVE); KETONES,URINE NEGATIVE (NEGATIVE); LEUKOCYTE ESTERASE ,URINE NEGATIVE (NEGATIVE); NITRATE,URINE NEGATIVE (NEGATIVE); OCCULT BLOOD,URINE NEGATIVE (NEGATIVE); PH,URINE 5.5 (5.0-8.0); PROTEIN,URINE NEGATIVE (NEGATIVE)
[2019-02-10 17:45] VITALS: BP 125/75
== END 2019-02-10 17:52 | disposition home or self-care (01) ==
LOC: EMS 13:12
DX: E11.649 Type 2 diabetes mellitus with hypoglycemia without coma (principal); I10 Essential (primary) hypertension; E11.9 Type 2 diabetes mellitus without complications; F17.210 Nicotine dependence, cigarettes, uncomplicated; Z79.4 Long term (current) use of insulin

== ENCOUNTER 2020-12-26 16:37 | Emergency (ER) | payer MEDICARE, MEDICAID ==
[~2020-12-26] VITALS: Ht 167.6 cm; Wt 72.7 kg
[2020-12-26 16:47] VITALS: BP 117/73
== END 2020-12-26 17:43 | disposition left against medical advice (07) ==
LOC: EMS 16:52
DX: R10.33 Periumbilical pain (principal); Z53.21 Procedure and treatment not carried out due to patient leaving prior to being seen by health care provider
CPT/HCPCS: 93005

== ENCOUNTER 2021-09-06 16:39 | Emergency (ER) | payer MEDICAID, MEDICARE ==
[~2021-09-06] VITALS: Ht 160 cm; Wt 71.4 kg
[2021-09-29 05:49] VITALS: BP 146/83
== END 2021-09-06 20:30 | disposition left against medical advice (07) ==
LOC: EMS 16:49
DX: R04.0 Epistaxis (principal); Z53.21 Procedure and treatment not carried out due to patient leaving prior to being seen by health care provider

== ENCOUNTER 2021-12-17 22:30 | Emergency (ER) | payer MEDICARE, OTHER ==
[~2021-12-17] VITALS: Ht 165.1 cm; Wt 72.7 kg
[2021-12-17 23:56] LABS: GLUCOMETER DEV NAME(LOC) ERT.5; GLUCOSE,POINT OF CARE 479 MG/DL (70-110)
[2021-12-18] MEDS ORDERED: INSULIN REGULAR, HUMAN 100 UNITS/ML IVP ONE
[2021-12-18] MEDS ORDERED: SODIUM CHLORIDE 0.9% 1,000 ML IV ONE
[2021-12-18 00:32] LABS: ANION GAP 7 mmol/L (8-16); CALCIUM, TOTAL 8.7 mg/dL (8.8-10.5); CARBON DIOXIDE 30 mmol/L (22-29); CHLORIDE 94 mmol/L (98-107); CREATININE 1.08 mg/dL (0.60-1.30); GLOMERULAR FILTR. RATE CALC > 60 mL/min (>60); POTASSIUM 4.3 mmol/L (3.5-5.1); SODIUM SERUM 131 mmol/L (136-145); UREA NITROGEN, BLOOD 20 mg/dL (7-18)
[2021-12-18 00:38] LABS: GLUCOSE,RANDOM 453 mg/dL (70-110)
[2021-12-18 02:26] LABS: GLUCOSE,POINT OF CARE 347 MG/DL (70-110)
[2021-12-18 03:01] LABS: GLUCOMETER DEV NAME(LOC) ERT.5; GLUCOSE,POINT OF CARE 304 MG/DL (70-110)
[2021-12-18 03:32] VITALS: BP 138/73
== END 2021-12-18 03:33 | disposition home or self-care (01) ==
LOC: EMS 22:32
DX: E11.65 Type 2 diabetes mellitus with hyperglycemia (principal); I10 Essential (primary) hypertension; Z90.12 Acquired absence of left breast and nipple; Z89.429 Acquired absence of other toe(s), unspecified side
CPT/HCPCS: 36415; 80048; 82962; 96361; 96374; 99283; J1815; J7030

== ENCOUNTER 2023-01-27 07:59 | Emergency (ER) | payer OTHER ==
[~2023-01-27] VITALS: Ht 167.6 cm; Wt 67.3 kg
[~2023-01-27 07:59] MED LIST changes: +AMOX1TAB16 PO; -INSLAN SQ; +LOSA-382 PO; +METF-446 PO; +METO-408 PO
[2023-01-27 08:04] VITALS: TEMP 99
[2023-01-27] MEDS ORDERED: [UNRECOGNIZED DRUG - REMARK] MISC (08:12)
[2023-01-27 08:15] VITALS: BP 151/77; PULSE 97; RESP 18
[2023-01-27] MEDS ORDERED: IBUPROFEN 600 MG TABLET PO ONE (08:45)
[2023-01-27] MEDS ORDERED: IBUP-1492 PO (08:49)
== END 2023-01-27 08:56 | disposition home or self-care (01) ==
LOC: EMS 07:59
DX: S09.90XA Unspecified injury of head, initial encounter (principal); E11.9 Type 2 diabetes mellitus without complications; I10 Essential (primary) hypertension; Z87.891 Personal history of nicotine dependence; X58.XXXA Exposure to other specified factors, initial encounter; Y93.K1 Activity, walking an animal; Y92.89 Other specified places as the place of occurrence of the external cause; Y99.8 Other external cause status
CPT/HCPCS: 82962; 99282